=== PATIENT | female | born 1965 | race Caucasian/White ===

== ENCOUNTER 2018-03-23 20:16 | Emergency (ER) | payer OTHER ==
[~2018-03-23] VITALS: Ht 160 cm; Wt 117.5 kg
--- OUTSIDE RECORDS SUMMARY | 2018-03-23 20:19 | XMS REPORT | Clinical Summary ---
Author Author Fofana [facility] Organization [employer] [facility] Address Unknown Phone Unavailable Care Team Providers Care Inhalation Therapy Aide Name Role Phone Karthikeyan Lentz MD PCP Allergies No Known Allergies Current Medications Prescription Sig. Disp. Refills Start End Date Status Date aspirin (ECOTRIN) 81 MG Take 81 mg by mouth Active enteric coated tablet daily. clopidogrel (PLAVIX) 75 Take 75 mg by mouth Active mg tablet daily. metoprolol tartrate Take 25 mg by mouth Active (LOPRESSOR) 25 mg tablet daily. clonAZEPAM (KlonoPIN) 0.5 Take 0.5 mg by mouth Active MG tablet daily. busPIRone (BUSPAR) 5 MG Take 5 mg by mouth 2 Active tablet (two) times a day. lisinopril Take 2.5 mg by mouth Active (PRINIVIL,ZESTRIL) 2.5 mg daily. tablet levothyroxine (SYNTHROID, Take 50 mcg by mouth Active LEVOXYL) 50 mcg tablet every morning. traZODone (DESYREL) 50 MG Take 50 mg by mouth Active tablet nightly. sertraline (ZOLOFT) 50 MG Take 50 mg by mouth 2 Active tablet (two) times a day. zolpidem (AMBIEN) 10 mg Take 10 mg by mouth Active tablet nightly as needed for sleep. acetaminophen-codeine Take 1 tablet by mouth 2 01/11/20 Active (TYLENOL WITH CODEINE #4) (two) times a day. 18 300-60 mg per tablet famotidine (PEPCID) 40 MG Take 40 mg by mouth 12/23/19 Active tablet nightly as needed. 18 gabapentin (NEURONTIN) Take 100 mg by mouth 11/28/19 Active 100 mg capsule every evening. 18 pantoprazole (PROTONIX) Take 40 mg by mouth 12/23/19 Active 40 MG EC tablet daily. 18 pravastatin (PRAVACHOL) Take 40 mg by mouth 12/23/19 Active 40 MG tablet daily. 18 tiZANidine (ZANAFLEX) 4 Take 4 mg by mouth every 11/28/19 Active MG tablet 8 (eight) hours as 18 needed. traMADol (ULTRAM) 50 mg Take 50 mg by mouth every 12/23/19 Active tablet 8 (eight) hours as 18 needed. HYDROcodone-acetaminophen Take 1 tablet by mouth 08/15/20 Discontin (NORCO) 10-325 mg per every 6 (six) hours as 17 ued tablet needed for moderate pain. atorvastatin (LIPITOR) 80 Take 80 mg by mouth 08/12/20 Discontin MG tablet daily. 17 ued levothyroxine (SYNTHROID, Take 50 mcg by mouth 04/12/20 Discontin LEVOXYL) 50 mcg tablet every morning. 17 ued esomeprazole (NexIUM) 40 Take 40 mg by mouth daily 01/24/20 Discontin MG capsule before breakfast. 18 ued DULoxetine (CYMBALTA) 30 Take 30 mg by mouth 11/25/19 Discontin MG capsule daily. 18 ued zolpidem (AMBIEN) 10 mg Take 10 mg by mouth 08/15/20 Discontin tablet nightly as needed for 17 ued sleep. traMADol (ULTRAM) 50 mg Take 50 mg by mouth every 08/16/20 Discontin tablet 6 (six) hours as needed 17 ued for moderate pain. cyclobenzaprine Take 10 mg by mouth every 08/16/20 Discontin (FLEXERIL) 10 mg tablet 8 (eight) hours as needed 17 ued for muscle spasms. pravastatin (PRAVACHOL) Take 40 mg by mouth 09/20/20 Discontin 40 MG tablet nightly. 17 ued atorvastatin (LIPITOR) 80 Take 1 tablet (80 mg 30 tablet 0 08/15/20 09/20/20 Discontin MG tablet total) by mouth daily for 17 17 ued 30 days. HYDROcodone-acetaminophen Take 1 tablet by mouth 30 tablet 0 08/15/20 09/18/20 Discontin (NORCO) 10-325 mg per every 6 (six) hours as 17 17 ued tablet needed for moderate pain for up to 30 days. Max Daily Amount: 4 tablets zolpidem (AMBIEN) 10 mg Take 1 tablet (10 mg 30 tablet 0 08/15/20 Discontin tablet total) by mouth nightly 17 17 ued as needed for sleep for up to 30 days. nicotine (NICODERM CQ) 14 Place 1 patch on the skin 30 patch 0 09/18/20 Discontin mg/24 hr daily for 30 days. 17 17 ued meclizine (ANTIVERT) 25 Chew 1.5 tablets (37.5 mg 90 tablet 0 09/18/20 Discontin mg chewable tablet total) 3 (three) times a 17 17 ued day as needed for dizziness for up to 30 days. meclizine (ANTIVERT) 25 Take 1 tablet (25 mg 120 tablet 0 08/15/20 09/20/20 Discontin mg tablet total) by mouth every 6 17 17 ued (six) hours for 30 days. meclizine (ANTIVERT) 25 Chew 1.5 tablets (37.5 mg 90 tablet 0 10/18/20 mg chewable tablet total) 3 (three) times a 17 17 day as needed for dizziness for up to 30 days. atorvastatin (LIPITOR) 80 Take 1 tablet (80 mg 30 tablet 0 09/18/20 10/18/20 MG tablet total) by mouth daily for 17 17 30 days. guaiFENesin (ROBITUSSIN) Take 10 mL (200 mg total) 355 mL 0 09/18/20 10/18/20 100 mg/5 mL syrup by mouth every 6 (six) 17 17 hours as needed for congestion for up to 30 days. HYDROcodone-acetaminophen Take 1 tablet by mouth 15 tablet 0 09/18/20 09/20/20 Discontin (NORCO) 10-325 mg per every 8 (eight) hours as 17 17 ued tablet needed for severe pain for up to 5 days. Max Daily Amount: 3 tablets nicotine (NICODERM CQ) 14 Place 1 patch on the skin 30 patch 0 10/18/20 mg/24 hr daily for 30 days. 17 17 methylPREDNISolone follow package directions 21 tablet 0 09/18/20 (MEDROL, CAROL,) 4 mg 17 17 tablet levoFLOXacin (LEVAQUIN) Take 1 tablet (750 mg 5 tablet 0 09/18/20 Discontin 750 MG tablet total) by mouth daily for 17 17 ued 5 days. traMADol (ULTRAM) 50 mg Take 2 tablets (100 mg 15 tablet 0 09/20/20 09/25/20 tablet total) by mouth 3 (three) 17 17 times a day as needed for severe pain for up to 5 days. temazepam (RESTORIL) 15 Take 15 mg by mouth 01/11/20 01/26/20 Discontin mg capsule nightly as needed. 18 18 ued traZODone (DESYREL) 100 01/06/20 01/24/20 Discontin MG tablet 18 18 ued ciprofloxacin (CIPRO) 500 Take 1 tablet (500 mg 3 tablet 0 01/27/20 01/26/20 Discontin MG tablet total) by mouth 2 (two) 18 18 ued times a day for 2 days. ciprofloxacin (CIPRO) 500 Take 1 tablet (500 mg 3 tablet 0 01/27/20 01/29/20 MG tablet total) by mouth 2 (two) 18 18 times a day for 2 days. 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 Encounters Date Type Specialty Care Team Description 01/24/2018 Procedure Pass General Internal Medicine 01/24/2018 Procedure Pass General Internal Medicine 01/23/2018 Emergency General Internal Medicine Wil Whaley, Hyperlipidemia, - DO unspecified 01/25/2018 Karthikeyan Lentz MD hyperlipidemia type (Primary Dx); Transient cerebral ischemia, unspecified type; Chest pain, unspecified type; Altered mental status, unspecified altered mental status type; S/P CABG x 2 11/28/2017 Patient Quality Mary Alston RN Outreach 11/24/2017 Emergency General Internal Medicine Nuno Alvarez MD Chest pain, rule out - Karthikeyan Lentz MD acute myocardial 11/28/2017 infarction (Primary Dx) 09/18/2017 Procedure Pass General Internal Medicine 09/15/2017 [facility] General Internal Medicine Pedro Pablo Irizarry Go, Chest pain, unspecified - Encounter MD type (Primary Dx); 09/20/2017 Diana Pinzon Shortness of breath; Zelda Kan MD Intractable back pain 08/15/2017 Procedure Pass General Internal Medicine 08/12/2017 Procedure Pass General Internal Medicine 08/11/2017 [facility] General Internal Medicine Jac Martines Syncope, unspecified - Encounter MD Dima syncope type (Primary Dx) 08/16/2017 Gay Villalobos MD Roberts, Matthew Thomas, DO 04/21/2017 Lab Lab Derick Durbin MD Anemia, unspecified type (Primary Dx) 04/12/2017 Emergency Emergency Medicine Wil Whaley, Chest pain, unspecified DO type (Primary Dx) 03/27/2017 Emergency Emergency Medicine Physician, Emergency, Rosalio Solis MD 03/27/2017 Orders Only Emergency Medicine Rosalio Jacobo MD after 03/22/2017 Immunizations Name Dates Previously Given Next Due FLUCELVAX QUAD PF (0.5mL 09/16/2017 syringe) Family History Medical History Relation Name Comments Aneurysm Father Aneurysm Mother Circulation Problems with Mother Legs Heart disease Mother Relation Name Status Comments Father Mother Social History Tobacco Use Types Packs/Day Years Used Date Current Every Day Smoker 0.5 Smokeless Tobacco: Never Used Tobacco Cessation: Counseling Given: Yes Alcohol Use Drinks/Week oz/Week Comments No Sex Assigned at Date Recorded Not on file Last Filed Vital Signs Vital Sign Reading Time Taken Blood Pressure 115/69 01/25/2018 3:26 PM [employer] Pulse 100 01/25/2018 3:26 PM [employer] Temperature 36.3 C (97.4 F) 01/25/2018 3:26 PM [employer] Respiratory Rate 17 01/25/2018 3:26 PM [employer] Oxygen Saturation 97% 01/25/2018 3:26 PM [employer] Inhaled Oxygen - - Concentration Weight 115 kg (254 lb) 01/24/2018 9:01 AM [employer] Height 162.6 cm (5' 4") 01/23/2018 5:25 PM [employer] Body Mass Index 43.6 01/24/2018 9:01 AM [employer] Plan of Treatment Health Maintenance Due Date Last Done Comments PAP SMEAR 1985 COLONOSCOPY 2014 MAMMOGRAM 2014 SHINGRIX VACCINE (#1) 2014 INFLUENZA VACCINE 06/21/2018 09/16/2017 Procedures Procedure Name Priority Date/Time Associated Diagnosis Comments ECHOCARDIOGRAM 2D Routine 01/24/2018 Results for this COMPLETE W MMODE SPECTRAL 2:34 PM [employer] procedure are in the COLOR DOPPLER (17378) results section. CV STRESS TEST NUCLEAR Routine 11/27/2017 Results for this CARDIO 5:48 PM [employer] procedure are in the results section. ECHOCARDIOGRAM 2D Routine 11/26/2017 Results for this COMPLETE W MMODE SPECTRAL 12:31 PM [employer] procedure are in the COLOR DOPPLER (72226) results section. ECHOCARDIOGRAM 2D Routine 08/12/2017 Results for this COMPLETE W MMODE SPECTRAL 11:44 AM CDT procedure are in the COLOR DOPPLER (94568) results section. after 03/22/2017 Results * POC glucose (01/25/2018 3:55 PM) Only the most recent of 20 results within the time period is included. Component Value Ref Range POC glucose 103 (H) 65 - 100 mg/dL Comment: Meter ID: [id number] Genomics Scientist: Bernie Williamson Specimen Performing Laboratory [facility] [address] [place] [address] * Estimated GFR (01/25/2018 4:16 AM) Only the most recent of 18 results within the time period is included. Component Value Ref Range GFR Non Af Amer 65 mL/min/1.73 m2 GFR Af Amer 79 mL/min/1.73 m2 Comment: Chronic kidney disease: <60 mL/min/1.73m2 Kidney failure: <15 mL/min/1.73m2 The estimated GFR is calculated from the IDMS-traceable Modification of Diet in Renal Disease Equation. The accuracy of the calculation is poor when the creatinine is normal. Calculated values >90 mL/min/1.73m2 are not reported. This equation has not been validated in children (<18 years), women, the elderly (>70 years), or ethnic groups other than Caucasians and Americans. Specimen Performing Laboratory Plasma specimen [facility] [address] [place] [address] * CBC with platelet and differential (01/25/2018 4:16 AM) Only the most recent of 21 results within the time period is included. Component Value Ref Range WBC 13.4 (H) 4.2 - 11.0 k/uL RBC 5.06 4.04 - 5.86 m/uL HGB 14.1 11.5 - 15.3 g/dL HCT 45.1 (H) 34.0 - 45.0 % MCV 89.1 80.0 - 98.0 fL MCH 27.9 27.0 - 34.0 pg MCHC 31.3 (L) 31.5 - 36.5 g/dL RDW - SD 47.0 37.0 - 51.0 fL MPV 10.2 7.4 - 10.4 fL Platelet count 245 150 - 400 k/uL Nucleated RBC 0.00 /100 WBC Neutrophils 68.7 (H) 36.0 - 66.0 % Lymphocytes 22.7 (L) 24.0 - 44.0 % Monocytes 6.0 0.0 - 6.0 % Eosinophils 1.6 0.0 - 6.0 % Basophils 0.4 0.0 - 1.2 % Immature granulocytes 0.6 0.0 - 1.0 % Specimen Performing Laboratory Blood [facility] [address] [place] [address] * Basic metabolic panel (01/25/2018 4:16 AM) Only the most recent of 9 results within the time period is included. Component Value Ref Range Sodium 139 135 - 150 mEq/L Potassium 3.8 3.5 - 5.0 mEq/L Chloride 103 100 - 109 mEq/L CO2 28 24 - 32 mmol/L Anion gap 8 7 - 15 mEq/L Comment: Starting from February , anion gap calculation no longer incorporates potassium. Please note the change. BUN 17 7 - 18 mg/dL Creatinine 0.9 0.8 - 1.5 mg/dL Glucose 107 (H) 65 - 100 mg/dL Calcium 8.5 (L) 8.6 - 10.7 mg/dL Specimen Performing Laboratory Plasma specimen [facility] [address] [place] [address] * Echocardiogram complete w contrast and 3D if needed (01/24/2018 2:34 PM) Component Value Ref Range Velocity Ratio (V1/V2) 0.73 m/s IVS,d 0.78 0.6 - 1.2 cm EF 70.87 % LVPWD,d 0.79 cm AoV Mean PG 3.45 mmHg AV LVOT peak gradient 3.56 mmHg MV mean gradient 2.26 mmHg MV valve area p 1/2 4.12 cm2 method PV Pk Grad 3.44 mmHg E/A ratio 1.45 E wave decelartion time 184.07 msec LVOT Diam,S 1.90 cm LVOT area 2.83 cm2 LVOT Vmax 1.05 m/s LVOT VTI 0.19 m AoV Peak PG 8.35 mmHg MV Peak E Roger 1.12 m/s MV stenosis pressure 1/2 53.38 ms time MV Peak A Roger 0.77 m/s Ao Root Diameter 2.52 cm AoV Area, Vmax 1.85 cm2 AoV Area, VTI 2.03 cm2 AoV Vmax 1.44 m/s IVS/LVPW,2D 0.99 Left Atrium Dimension 3.81 cm Anterior LV,d 4.17 cm LV,s 2.51 cm PV VMAX 0.93 m/s TR Vpeak 2.76 mm/s MV E A ratio 1.45 mmHg TR pk grad 30.45 mmHg MR peak grad 5.07 mmHg Ao Root Diameter 2.52 cm LV SYS VOL 22.46 ml LV NIELSEN VOL 77.09 ml LV SV Teich 2D 54.62 ml LV Vol s Teich PSAX 22.46 ml LVOT CO 4.15 l/min LVOT HR for LVOT CO 72.99 bpm MV Vmax 1.13 m MV VTI Tips 0.27 m AoV Vmn 0.87 IVS s 2D 0.99 LV FS Cube 2D 39.84 LV FS Teich 2D 39.84 AoV VTI 0.25 m LV EF,2D 78.22 % MV AE ratio 0.69 LVOT Vmn 0.65 Aov area Vmn 1.98 cm2 LVOT mean grad 2.02 mmHg MAX Pred HR 166.92 85 of MPHR 141.88 Calc MPHR 166.92 bpm IVS pct thck PLAX 26.28 % LV SV Cube 2D 56.56 ml LV vol d cube 2D 72.31 ml LV vol s cube 2D 15.75 ml LVPW pct thck PLAX 56.98 % LVPW s PLAX 1.24 cm MV Decel slope 6.07 m/s2 Pred Exer Dur R1 8.66 Pred METS R1 7.80 Specimen Performing Laboratory [facility] [address] [place] [address] Narrative There is mild left ventricular concentric hypertrophy. Left Ventricular ejection fraction is 55 - 60%. Left atrium size is mildly dilated. No pericardial effusion The mitral valve appears thickened. Trace mitral valve regurgitation There is moderate sclerosis of the aortic valve leaflets. Spectral Doppler shows impaired relaxation pattern of left ventricular diastolic filling. * Arterial blood gas (01/24/2018 12:01 PM) Component Value Ref Rivet Tester CS Collection site RR pH, arterial 7.450 7.350 - 7.450 units pCO2, arterial 41.3 35.0 - 45.0 mmHg pO2, arterial 98.5 (H) 80.0 - 90.0 mmHg O2 saturation, arterial 98.1 95.0 - 100.0 % Base excess, arterial 4.7 mEq/L Bicarbonate 28.7 (H) 21.0 - 28.0 mEq/L O2 content 19.6 VOL% FiO2, inspired O2% 21.0 % Carboxyhemoglobin 1.6 (H) 0.0 - 1.4 % Comment: Reference Ranges: Carboxyhemoglobin Non smoker: 0.0 - 2.0% Smoker: 2.1 - 5.0% Heavy smoker: 5.1 - 9% Methemoglobin 0.1 0.0 - 1.0 % Hemoglobin, blood gas 14.4 12.0 - 16.0 g/dL pO2, A-a 5.4 mmHg Specimen Performing Laboratory Blood [facility] [address] [place] [address] * MRI Brain W Wo Contrast (01/24/2018 10:56 AM) Only the most recent of 2 results within the time period is included. Specimen Performing Laboratory [facility] [address] [place] [address] Narrative EXAMINATION: MRI BRAIN W WO CONTRAST COMPARISON: August 12, 2017 CLINICAL HISTORY AMS. TECHNIQUE: Multiplanar multisequence examination was performed with and without contrast FINDINGS: There is no definite diffusion restriction. The ventricles and subarachnoid spaces are mildly dilated. There is right minimal chronic microvascular gliosis in the centrum semiovale and petty. There is no acute hemorrhage or hemosiderin deposition. There are no significant interval changes IMPRESSION: Minimal chronic microvascular gliosis in the deep white matter. No acute ischemia or acute hemorrhage. No significant interval changes. [facility]-[id number] Procedure Note Interface, Radiology Results Incoming - 01/24/2018 11:03 AM [employer] EXAMINATION: MRI BRAIN W WO CONTRAST COMPARISON: August 12, 2017 CLINICAL HISTORY AMS. TECHNIQUE: Multiplanar multisequence examination was performed with and without contrast FINDINGS: There is no definite diffusion restriction. The ventricles and subarachnoid spaces are mildly dilated. There is right minimal chronic microvascular gliosis in the centrum semiovale and petty. There is no acute hemorrhage or hemosiderin deposition. There are no significant interval changes IMPRESSION: Minimal chronic microvascular gliosis in the deep white matter. No acute ischemia or acute hemorrhage. No significant interval changes. [facility]-[id number] * MRI Lumbar Spine Wo Contrast (01/24/2018 10:42 AM) Only the most recent of 2 results within the time period is included. Specimen Performing Laboratory [facility] [address] [place] [address] Narrative EXAM:MRI LUMBAR SPINE WO CONTRAST COMPARISON: September 18, 2017. CLINICAL HISTORY: left lumbar radiculopathy TECHNIQUE: Multiplanar multisequence examination was performedWithout contrast. FINDINGS: Sagittal images demonstrate moderate degenerative disc space narrowing at L2-3 with adjacent Modic type II fibrofatty reactive changes. There is very mild disc space narrowing at L5-S1. Axial images demonstrate following: L5-S1: There is a small dorsal left paramedian radial annular tear with minimal bulge. There is no significant mass effect on the left S1 nerve root. L4-5: There are minimal facet joint degenerative changes. L3-4: There are minimal facet joint degenerative changes. L2-3: There is annular bulging with a right foraminal disc protrusion impinging on the right L2 nerve root. This appears grossly stable. L1-2: No significant bulge or stenosis. IMPRESSION: Degenerative annular bulging at L2-3 with a superimposed right foraminal disc protrusion impinging on the right L2 nerve root. Small dorsal lithotomy degenerative annular tear at L5-S1 without significant protrusion or mass effect on the S1 nerve root. No significant central spinal canal stenosis. No gross interval changes. [facility]-[id number] Procedure Note Interface, Radiology Results Incoming - 01/24/2018 10:51 AM [employer] EXAM: MRI LUMBAR SPINE WO CONTRAST COMPARISON: September 18, 2017. CLINICAL HISTORY: left lumbar radiculopathy TECHNIQUE: Multiplanar multisequence examination was performed Without contrast. FINDINGS: Sagittal images demonstrate moderate degenerative disc space narrowing at L2-3 with adjacent Modic type II fibrofatty reactive changes. There is very mild disc space narrowing at L5-S1. Axial images demonstrate following: L5-S1: There is a small dorsal left paramedian radial annular tear with minimal bulge. There is no significant mass effect on the left S1 nerve root. L4-5: There are minimal facet joint degenerative changes. L3-4: There are minimal facet joint degenerative changes. L2-3: There is annular bulging with a right foraminal disc protrusion impinging on the right L2 nerve root. This appears grossly stable. L1-2: No significant bulge or stenosis. IMPRESSION: Degenerative annular bulging at L2-3 with a superimposed right foraminal disc protrusion impinging on the right L2 nerve root. Small dorsal lithotomy degenerative annular tear at L5-S1 without significant protrusion or mass effect on the S1 nerve root. No significant central spinal canal stenosis. No gross interval changes. [facility]-[id number] * Troponin (01/24/2018 9:52 AM) Only the most recent of 15 results within the time period is included. Component Value Ref Range Troponin <0.01 0.00 - 0.60 ng/mL Comment: 0.11 - 1.49 ng/ml May indicate increased risk of acute coronary syndrome. >=1.5 ng/ml Consistent with acute myocardial infarction. The diagnostic value of a single normal or non-diagnostic result is questionable. Serial samples at 2-6 hour intervals are required to rule out acute myocardial injury. Specimen Performing Laboratory Plasma specimen [facility] [address] [place] [address] [place] [address] * Thyroid stimulating hormone (01/24/2018 9:52 AM) Component Value Ref Range TSH 0.89 0.38 - 4.82 uIU/mL Specimen Performing Laboratory Plasma specimen [facility] [address] [place] [address] [place] [address] * Ammonia level (01/24/2018 9:52 AM) Component Value Ref Range Ammonia 11 3 - 37 umol/L Specimen Performing Laboratory Plasma specimen [facility] [address] [place] [address] [place] [address] * Urine drugs of abuse screen (01/24/2018 9:37 AM) Only the most recent of 2 results within the time period is included. Component Value Ref Range Amphetamine screen, urine NEG Barbiturate screen, urine NEG Benzodiazepine screen, POS urine Cocaine screen, urine NEG Methadone screen, urine NEG Opiates screen, urine POS Phencyclidine screen, NEG urine Cannabinoid screen, urine NEG Comment: Drug screen minimum concentration of detectability Amphetamines 1000 ng/mL Methamphetamines 1000 ng/mL Barbiturates 300 ng/mL Benzodiazepines 300 ng/mL Cocaine 300 ng/mL Methadone 3 00 ng/mL Opiates 300 ng/mL Phencyclidine 25 ng/mL Cannabinoids 50 ng/mL Tricyclics 1000 ng/mL Negative test results indicates presumptive evidence of lack of clinically significant drug concentration in this urine specimen. Positive test results are presumptive evidence of clinically significant drug concentration in this urine specimen. Testing performed for medical purposes only. Specimen Performing Laboratory Urine [facility] [address] [place] [address] * Urinalysis screen and microscopy, with reflex to culture (01/24/2018 3:13 AM) Only the most recent of 5 results within the time period is included. Component Value Ref Range Specimen site Clean catch Color, UA Yellow Appearance, UA Clear Specific gravity, UA 1.035 1.001 - 1.035 pH, UA 6.0 5.0 - 8.5 Protein, UA 1+ (A) Negative Glucose, UA Negative Negative Ketones, UA Negative Negative Bilirubin, UA Negative Negative Blood, UA Negative Negative Nitrite, UA Positive (A) Negative Urobilinogen, UA Negative <2.0 Leukocyte esterase, UA Negative Negative Epithelial cells, UA Moderate /HPF WBC, UA 8 (H) 0 - 5 /HPF RBC, UA 2 0 - 5 /HPF Bacteria, UA Moderate (A) None seen Yeast, UA None seen Yeast with pseudohyphae, None seen UA Calcium oxalate crystals, Few UA Specimen Performing Laboratory Urine [facility] [address] [place] [place] [address] * Gram stain (01/24/2018 3:13 AM) Only the most recent of 4 results within the time period is included. Component Value Ref Range Gram stain result No WBC's Rare Gram negative rods Comment: Specimen Information Specimen Source: Urine Specimen Site: Clean catch Specimen Performing Laboratory Urine [facility] DEPART[facility] OF PATHOLOGY AND GENOMIC MEDICINE [address] [place] [address] * Urine culture (01/24/2018 3:13 AM) Only the most recent of 4 results within the time period is included. Component Value Ref Range Urine culture isolate Escherichia coli >10-5 cfu/ml (A) Comment: Specimen Information Specimen Source: Urine Specimen Site: Clean catch Urine culture isolate Mixed Gram positive harmony 10-2 cfu/ml (A) Specimen Performing Laboratory Urine [facility] DE[facility] OF PATHOLOG[facility]OM[facility] MEDICINE [address] [place] [id number] Organism Antibiotic Method Susceptibility Escherichia coli Ampicillin ARNULFO <=2 mcg/mL: Susceptible Escherichia coli Amoxicillin/Clavulanate ARNULFO 4/2 mcg/mL: Susceptible Escherichia coli Amikacin ARNULFO <=4 mcg/mL: Susceptible Escherichia coli Aztreonam ARNULFO <=1 mcg/mL: Susceptible Escherichia coli Ceftazidime ARNULFO <=0.5 mcg/mL: Susceptible Escherichia coli Ciprofloxacin ARNULFO <=0.5 mcg/mL: Susceptible Escherichia coli Ceftriaxone ARNULFO <=0.5 mcg/mL: Susceptible Escherichia coli Cefuroxime Sodium ARNULFO <=4 mcg/mL: Susceptible Escherichia coli Cefazolin ARNULFO <=1 mcg/mL: Susceptible Escherichia coli Cefipime ARNULFO <=0.5 mcg/mL: Susceptible Escherichia coli Nitrofurantoin ARNULFO <=16 mcg/mL: Susceptible Escherichia coli Cefoxitin ARNULFO <=4 mcg/mL: Susceptible Escherichia coli Gentamicin ARNULFO <=1 mcg/mL: Susceptible Escherichia coli Imipenem ARNULFO <=0.25 mcg/mL: Susceptible Escherichia coli Levofloxacin ARNULFO <=1 mcg/mL: Susceptible Escherichia coli Tobramycin ARNULFO 1 mcg/mL: Susceptible Escherichia coli Ampicillin/Sulbactam ARNULFO 4/2 mcg/mL: Susceptible Escherichia coli Trimethoprim/Sulfamethoxa ARNULFO <=0.5/9.5 mcg/mL: zole Susceptible Escherichia coli Tetracycline ARNULFO <=1 mcg/mL: Susceptible Escherichia coli Piperacillin/Tazobactam ARNULFO <=2/4 mcg/mL: Susceptible Escherichia coli Ertapenem ARNULFO <=0.125 mcg/mL: Susceptible Escherichia coli Tigecycline ARNULFO <=0.5 mcg/mL: Susceptible * CTA Head W Wo Contrast (01/23/2018 5:40 PM) Specimen Performing Laboratory [address] [address] Narrative EXAMINATION:CT ANGIOGRAM HEAD W WO CONTRAST CLINICAL HISTORY:STROKE COMPARISON:None. FINDINGS: Axial images were obtained throughout the the brain after intravenous contrast infusion with MPR and 3-D MIP image reconstructions. CT scans are performed using radiation dose reduction techniques. Technical factors are evaluated and adjusted to ensure appropriate moderation of exposure. Automated dose management technology is applied to adjust radiation exposure while achieving a highly diagnostic quality image. The large intracranial arteries are patent. There are minimal atheromatous carotid siphon calcifications. There is no definite focal aneurysm. The dural venous sinuses are patent. IMPRESSION: Essentially unremarkable examination. No large vessel occlusion or aneurysm. [facility]-[id number] Procedure Note Hm Interface, Radiology Results Incoming - 01/23/2018 5:51 PM [employer] EXAMINATION: CT ANGIOGRAM HEAD W WO CONTRAST CLINICAL HISTORY: STROKE COMPARISON: None. FINDINGS: Axial images were obtained throughout the the brain after intravenous contrast infusion with MPR and 3-D MIP image reconstructions. CT scans are performed using radiation dose reduction techniques. Technical factors are evaluated and adjusted to ensure appropriate moderation of exposure. Automated dose management technology is applied to adjust radiation exposure while achieving a highly diagnostic quality image. The large intracranial arteries are patent. There are minimal atheromatous carotid siphon calcifications. There is no definite focal aneurysm. The dural venous sinuses are patent. IMPRESSION: Essentially unremarkable examination. No large vessel occlusion or aneurysm. [facility]-[id number] * CTA Neck W Wo Contrast (01/23/2018 5:36 PM) Only the most recent of 2 results within the time period is included. Specimen Performing Laboratory [facility] [address] [place] [address] Narrative EXAMINATION: CT ANGIOGRAM NECK W WO CONTRAST CLINICAL HISTORY: STROKE COMPARISON:Carotid ultrasound exam dated November 25, 2017 and CTA neck dated August 13, 2017 TECHNIQUE: Imaging of the cervical circulation was obtained from the upper thorax to the skull base during the arterial phase of enhancement. Postprocessing was performed with MIP multiplanar and 3D reconstructed images. CT imaging was performed with iterative reconstruction technique and/or automated exposure control to reduce radiation dose. FINDINGS: Visualized upper mediastinum shows no mass lesion. Lung apices are clear. There is some atherosclerotic disease involving the takeoff of the left subclavian artery with mild stenosis. There are dense calcifications in the partially visualized coronary vessels. Thyroid gland is intact. Soft tissues are within normal limits without mass, fluid collection or adenopathy. Visualized osseous structures shows no acute fracture or dislocation. There is calcified and noncalcified plaque in the right carotid bulb. This results in moderate, 40-50% stenosis of the vessel. This appears slightly progressed from prior exam. The common carotid artery is widely patent. The left common carotid artery is patent. There is noncalcified plaque in the carotid bulb with 30-40% stenosis of the internal carotid artery by NASCET criteria. This actually appears slightly improved from the prior July exam. This is secondary to less prominent soft plaque in the vessel compared to the prior exam. The vertebral arteries are well formed and roughly codominant. There is some plaque noted at the origins of the vessels with mild stenosis. Otherwise the vessels are widely patent. IMPRESSION: There is moderate stenosis of the carotid bulbs. This has slightly progressed on the right. It has slightly improved on the left compared to prior CTA dated August 13, 2017. [facility]-[id number] Procedure Note Hm Interface, Radiology Results Incoming - 01/23/2018 5:52 PM [employer] EXAMINATION: CT ANGIOGRAM NECK W WO CONTRAST CLINICAL HISTORY: STROKE COMPARISON: Carotid ultrasound exam dated November 25, 2017 and CTA neck dated August 13, 2017 TECHNIQUE: Imaging of the cervical circulation was obtained from the upper thorax to the skull base during the arterial phase of enhancement. Postprocessing was performed with MIP multiplanar and 3D reconstructed images. CT imaging was performed with iterative reconstruction technique and/or automated exposure control to reduce radiation dose. FINDINGS: Visualized upper mediastinum shows no mass lesion. Lung apices are clear. There is some atherosclerotic disease involving the takeoff of the left subclavian artery with mild stenosis. There are dense calcifications in the partially visualized coronary vessels. Thyroid gland is intact. Soft tissues are within normal limits without mass, fluid collection or adenopathy. Visualized osseous structures shows no acute fracture or dislocation. There is calcified and noncalcified plaque in the right carotid bulb. This results in moderate, 40-50% stenosis of the vessel. This appears slightly progressed from prior exam. The common carotid artery is widely patent. The left common carotid artery is patent. There is noncalcified plaque in the carotid bulb with 30-40% stenosis of the internal carotid artery by NASCET criteria. This actually appears slightly improved from the prior July exam. This is secondary to less prominent soft plaque in the vessel compared to the prior exam. The vertebral arteries are well formed and roughly codominant. There is some plaque noted at the origins of the vessels with mild stenosis. Otherwise the vessels are widely patent. IMPRESSION: There is moderate stenosis of the carotid bulbs. This has slightly progressed on the right. It has slightly improved on the left compared to prior CTA dated August 13, 2017. [id number] * ECG ED Preliminary Interpretation - NOT AN ORDER (01/23/2018 5:27 PM) Only the most recent of 6 results within the time period is included. Narrative Wil Whaley DO 01/26/20188:55 AM ECG ED Preliminary Interpretation - Not an Order Performed by: WIL WHALEY Authorized by: WIL WHALEY ECG reviewed by ED Physician in the absence of a vp digital marketing: yes Rate: ECG rate:104 ECG rate assessment: tachycardic Rhythm: Rhythm: sinus tachycardia Ectopy: Ectopy: none QRS: QRS axis:Normal Conduction: Conduction: normal ST segments: ST segments:Normal T waves: T waves: normal Other findings: Other findings: prolonged qTc interval Comments: Time 17:24. * ECG 12 lead (01/23/2018 5:24 PM) Only the most recent of 10 results within the time period is included. Component Value Ref Range Ventricular rate 104 Atrial rate 104 MN interval 152 QRSD interval 88 QT interval 382 QTC interval 502 P axis 1 65 QRS axis 1 34 T wave axis 60 EKG impression Sinus tachycardia-Nonspecific ST abnormality-Abnormal ECG-In automated comparison with ECG of 25-NOV-2017 01:12,-No significant change was found- Specimen Performing Laboratory [facility] [address] [place] [address] * CT Stroke Brain Wo Contrast (01/23/2018 5:15 PM) Specimen Performing Laboratory [facility] [address] [place] [address] Narrative Examination: CT STROKE BRAIN WO CONTRAST Clinical History: STROKE Comparison: NONE Technique: Multiple axial CT images of the brain are obtained without the use of intravenous contrast. CT scans are performed using radiation dose reduction techniques. Technical factors are evaluated and adjusted to ensure appropriate moderation of exposure. Automated dose management technology is applied to adjust radiation dose to minimize exposure, while achieving a diagnostic image. FINDINGS: The visualized paranasal sinuses are clear. The mastoid air cells are well aerated. The globes and optic nerves are unremarkable. The ventricles are symmetrical. There is no mass effect or any midline shift. There is no evidence of any extra-axial fluid collection. There is no parenchymal hemorrhage or mass lesion. There is maintenance of the colvin-white junction.There is a chronic lacunar infarct seen within the left basal ganglia. This is unchanged from prior study. The posterior fossa does not demonstrate any masses. IMPRESSION: 1. There Is no acute intracranial abnormality. 2. A chronic lacunar infarct seen within the left basal ganglia. 3. There is no significant interval change from prior study. 4. Findings were discussed with Dr. WIL WHALEY at 01/23/2018 5:20 PM who verbalized understanding. [facility]-[id number] Procedure Note [facility], Radiology Results Incoming - 01/23/2018 5:23 PM [employer] Examination: CT STROKE BRAIN WO CONTRAST Clinical History: STROKE Comparison: NONE Technique: Multiple axial CT images of the brain are obtained without the use of intravenous contrast. CT scans are performed using radiation dose reduction techniques. Technical factors are evaluated and adjusted to ensure appropriate moderation of exposure. Automated dose management technology is applied to adjust radiation dose to minimize exposure, while achieving a diagnostic image. FINDINGS: The visualized paranasal sinuses are clear. The mastoid air cells are well aerated. The globes and optic nerves are unremarkable. The ventricles are symmetrical. There is no mass effect or any midline shift. There is no evidence of any extra-axial fluid collection. There is no parenchymal hemorrhage or mass lesion. There is maintenance of the colvin-white junction. There is a chronic lacunar infarct seen within the left basal ganglia. This is unchanged from prior study. The posterior fossa does not demonstrate any masses. IMPRESSION: 1. There Is no acute intracranial abnormality. 2. A chronic lacunar infarct seen within the left basal ganglia. 3. There is no significant interval change from prior study. 4. Findings were discussed with Dr. WIL WHALEY at 01/23/2018 5:20 PM who verbalized understanding. [id number] * Partial thromboplastin time, activated (01/23/2018 5:10 PM) Only the most recent of 4 results within the time period is included. Component Value Ref Range PTT 24.6 23.0 - 36.0 sec Comment: PTT therapeutic range for unfractionated heparin is 61.0-112.0 seconds which corresponds to Anti-Xa 0.3-0.7 U/ml. Note: Change in Panic Value The PTT Panic Value is changing from 110 sec. to 100 sec. due to new instrumentation and reagents. Correlation studies have been performed to validate this result. Specimen Performing Laboratory Blood [facility] [address] [place] [address] * Prothrombin time with INR (01/23/2018 5:10 PM) Only the most recent of 9 results within the time period is included. Component Value Ref Range Prothrombin time 12.7 12.0 - 15.0 sec INR 0.94 0.92 - 1.12 Comment: For patients on anticoagulant therapy, reference ranges below: Indication: INR Value Treatment of Venous Thrombosis, 2.0-3.0 pulmonary emboli, or prophylaxis of a venous thrombosis, or systemic emboli. High dose, high risk patients 3.0-4.5 with mechanical valves. NOTE: INR values over 3.0 are sometimes associated with gastrointestinal hemorrhage, especially values over 4.0. Specimen Performing Laboratory Blood [facility] [address] [place] [address] * Comprehensive metabolic panel (01/23/2018 5:10 PM) Only the most recent of 9 results within the time period is included. Component Value Ref Range Sodium 139 135 - 150 mEq/L Potassium 3.7 3.5 - 5.0 mEq/L Chloride 105 100 - 109 mEq/L CO2 25 24 - 32 mmol/L Anion gap 9 7 - 15 mEq/L Comment: Starting from February , anion gap calculation no longer incorporates potassium. Please note the change. BUN 15 7 - 18 mg/dL Creatinine 0.8 0.8 - 1.5 mg/dL Glucose 102 (H) 65 - 100 mg/dL Calcium 9.1 8.6 - 10.7 mg/dL Protein 7.9 6.3 - 8.2 g/dL Albumin 3.5 3.2 - 5.0 g/dL A/G ratio 0.8 0.7 - 3.8 Alkaline phosphatase 88 30 - 120 U/L AST 6 (L) 15 - 37 U/L ALT 15 (L) 30 - 65 U/L Total bilirubin 0.3 0.2 - 1.2 mg/dL Specimen Performing Laboratory Plasma specimen [facility] [address] [place] [address] * CV stress test (11/27/2017 5:48 PM) Component Value Ref Range Resting HR 91 Resting BP 139 Peak MET Achieved 1.0 Protocol Name FARHAT Time in Exercise Phase 00:01:21 Max Systolic BP 146 Max Diastolic BP 77 Max Heart Rate 117 Max Predicted Heart Rate 168 Target HR Formula (220 - Age)*85% Test Indication Chest Discomfort Stress Test Impression - Target HR 142.80 bpm Specimen Performing Laboratory [facility] [address] [place] [address] * CV myocardial perfusion (11/27/2017 5:48 PM) Component Value Ref Range Target HR 142.80 bpm Resting HR 91 BPM Resting BP 139/82 mmHg Post peak HR 117 bpm Percent HR 81.93 % Post peak BP 146/77 mmHg Exercise duration (min) 2 min Estimated workload 1.0 METS Specimen Performing Laboratory [facility] [address] [place] [address] Narrative No chest pain No exercise induced ST-T changes. No arrhythmias with exercise. Normal heart rate and BP response. Myoview report Breastattenuation artifact No conclusive significant large reversible Ischemia Normal wall motion EF 65 % * Echocardiogram complete w contrast and 3D if needed (11/26/2017 12:31 PM) Component Value Ref Range Velocity Ratio (V1/V2) 0.69 m/s IVS,d 1.11 0.6 - 1.2 cm EF 66.62 % LVPWD,d 0.99 cm AoV Mean PG 3.16 mmHg AV LVOT peak gradient 2.89 mmHg MV mean gradient 2.48 mmHg MV valve area p 1/2 3.96 cm2 method PV Pk Grad 2.48 mmHg E/A ratio 0.95 E wave decelartion time 191.37 msec LVOT Diam,S 1.84 cm LVOT area 2.66 cm2 LVOT Vmax 0.85 m/s LVOT VTI 0.17 m AoV Peak PG 6.14 mmHg MV Peak E Roger 0.70 m/s MV stenosis pressure 1/2 55.50 ms time MV Peak A Roger 0.74 m/s Ao Root Diameter 2.76 cm AoV Area, Vmax 1.81 cm2 AoV Area, VTI 2.05 cm2 AoV Vmax 1.24 m/s IVS/LVPW,2D 1.12 Left Atrium Dimension 3.77 cm Anterior LV,d 4.43 cm LV,s 2.80 cm PV VMAX 0.79 m/s TR Vpeak 2.42 mm/s MV E A ratio 0.94 mmHg TR pk grad 18.23 mmHg MR peak grad 7.04 mmHg Ao Root Diameter 2.76 cm LV SYS VOL 29.67 ml LV NIELSEN VOL 88.89 ml LV SV Teich 2D 59.22 ml LV Vol s Teich PSAX 29.67 ml LVOT CO 3.55 l/min LVOT HR for LVOT CO 76.72 bpm MV Vmax 1.33 m MV VTI Tips 0.30 m AoV Vmn 0.82 IVS s 2D 1.26 LV FS Cube 2D 36.63 LV FS Teich 2D 36.63 AoV VTI 0.23 m LV EF,2D 74.55 % MV AE ratio 1.06 LVOT Vmn 0.51 Aov area Vmn 1.72 cm2 LVOT mean grad 1.26 mmHg MAX Pred HR 167.08 85 of MPHR 142.02 Calc MPHR 167.08 bpm IVS pct thck PLAX 12.91 % LV SV Cube 2D 64.61 ml LV vol d cube 2D 86.67 ml LV vol s cube 2D 22.06 ml LVPW pct thck PLAX 33.53 % LVPW s PLAX 1.32 cm MV Decel slope 3.66 m/s2 Pred Exer Dur R1 8.67 Pred METS R1 7.82 Specimen Performing Laboratory [facility] [address] [place] [address] Narrative The left ventricle chamber size is normal. Left Ventricular ejection fraction is 60 - 65%. Spectral Doppler shows impaired relaxation pattern of left ventricular diastolic filling. Right ventricular size is normal. The anterior leaflet is mild thickened and/or calcified. There is a mild prolapse of the mitral valve. * PV carotid duplex (11/25/2017 9:32 PM) Only the most recent of 2 results within the time period is included. [facility] [address] [place] [address] Narrative Examination: US CAROTID DUPLEX BILATERAL CLINICAL HISTORY: Syncope of uncertain cause after initial cardiovascular eval TECHNIQUE: Examination includes full duplex Doppler scan (real-time B mode grayscale, Doppler spectral analysis, Doppler color flow imaging) of the common carotid, internal carotid, external carotid, and vertebral arteries. Velocity parameters are based upon studies using distal internal carotid artery diameter as a denominator for stenosis calculation. COMPARISON:None. FINDINGS: Right side: Visually, there is a partially calcific plaque at the carotid bulb and proximal ICA which appears to result in some degree of narrowing. The peak systolic velocities in the right internal carotid artery are 94, 112, and 104 cm /s. ICA/CCA ratio 1.5. There is antegrade flow in the right vertebral artery. Left side: Visually, there appears to be predominantly noncalcified plaque at the carotid bulb and proximal cervical ICA resulting in some degree of narrowing The peak systolic velocities in the left internal carotid artery are 137, 108, and 62 cm/s. ICA/CCA ratio 1.7. Morphologically, there appears to be prolongation of the acceleration time. There is antegrade flow in the left vertebral artery. IMPRESSION: Atherosclerosis as described above. Most likely this results in mild stenosis on the right. On the left, peak systolic velocities as well as the prolonged acceleration time could indicates more significant stenosis, most likely moderate (50-69%). Consider correlation with dedicated neck CTA. [facility]-[id number] Procedure Note [facility], Radiology Results Incoming - 11/25/2017 9:44 PM [employer] Examination: US CAROTID DUPLEX BILATERAL CLINICAL HISTORY: Syncope of uncertain cause after initial cardiovascular eval TECHNIQUE: Examination includes full duplex Doppler scan (real-time B mode grayscale, Doppler spectral analysis, Doppler color flow imaging) of the common carotid, internal carotid, external carotid, and vertebral arteries. Velocity parameters are based upon studies using distal internal carotid artery diameter as a denominator for stenosis calculation. COMPARISON:None. FINDINGS: Right side: Visually, there is a partially calcific plaque at the carotid bulb and proximal ICA which appears to result in some degree of narrowing. The peak systolic velocities in the right internal carotid artery are 94, 112, and 104 cm /s. ICA/CCA ratio 1.5. There is antegrade flow in the right vertebral artery. Left side: Visually, there appears to be predominantly noncalcified plaque at the carotid bulb and proximal cervical ICA resulting in some degree of narrowing The peak systolic velocities in the left internal carotid artery are 137, 108, and 62 cm/s. ICA/CCA ratio 1.7. Morphologically, there appears to be prolongation of the acceleration time. There is antegrade flow in the left vertebral artery. IMPRESSION: Atherosclerosis as described above. Most likely this results in mild stenosis on the right. On the left, peak systolic velocities as well as the prolonged acceleration time could indicates more significant stenosis, most likely moderate (50-69%). Consider correlation with dedicated neck CTA. [facility]-[id number] * HOLLIS 2 mutation detection by PCR (11/25/2017 6:34 PM) Component Value Ref Range HOLLIS-2 mutation ID Not-Detected Not-Detected HOLLIS-2 amplification Not-Detected Not-Detected HOLLIS 2 mutation detection, See link below for PDF Lab ReportComment: Case PCR Number: [id number] Specimen Performing Laboratory Blood [facility] DEPARTMENT OF PATHOLOGY AND GENOMIC MEDICINE [address] [place] [id number] * Erythropoietin (11/25/2017 6:34 PM) Component Value Ref Range Erythropoietin 13.4 2.6 - 18.5 mIU/mL Specimen Performing Laboratory Serum [facility] OF PATHOLOGY AND GENOMIC MEDICINE [address] [place] [id number] * XR Chest 2 Vw (11/24/2017 8:19 PM) Specimen Performing Laboratory [facility] [address] [place] [id number] Narrative EXAMINATION: XR CHEST 2 VW CLINICAL HISTORY: Chest Pain COMPARISON:09/15/2017. IMPRESSION: The lungs are clear. No pleural effusion or pneumothorax. The cardiac silhouette is borderline enlarged. Diffuse osteopenia. Status post median sternotomy. No acute osseous abnormalities. [facility]-[id number] Procedure Note Interface, Radiology Results Incoming - 11/24/2017 8:42 PM [employer] EXAMINATION: XR CHEST 2 VW CLINICAL HISTORY: Chest Pain COMPARISON: 09/15/2017. IMPRESSION: The lungs are clear. No pleural effusion or pneumothorax. The cardiac silhouette is borderline enlarged. Diffuse osteopenia. Status post median sternotomy. No acute osseous abnormalities. [facility]-[id number] * B natriuretic peptide (11/24/2017 4:10 PM) Only the most recent of 6 results within the time period is included. Component Value Ref Range BNP 37 0 - 100 pg/mL Specimen Performing Laboratory Blood [facility] [address] [address] * Creatine kinase, total (CPK) (11/24/2017 4:10 PM) Only the most recent of 5 results within the time period is included. Component Value Ref Range Creatine kinase 34 (L) 61 - 224 U/L Specimen Performing Laboratory Plasma specimen [facility] [address] [place] [address] * Smear review (09/19/2017 12:00 PM) Only the most recent of 3 results within the time period is included. Component Value Ref Range Platelet slide review Desiree adequate Specimen Performing Laboratory [facility] [address] [place] [address] * CT Lumbar Spine Wo Contrast (09/18/2017 3:18 PM) Specimen Performing Laboratory [facility] [address] [place] [address] Narrative EXAMINATION:CT LUMBAR SPINE WO CONTRAST CLINICAL HISTORY:back pain COMPARISON:None. Technique: Axial scans obtained through the lumbar spine. Sagittal and coronal reconstructions performed. 863 total images utilized. FINDINGS: The patient is mildly osteoporotic. The lumbar lordosis is well maintained. There are 5 lumbar-type vertebrae. No compressive abnormality. Mild disc space narrowing L5-S1 with vacuum disc changes. Mild anterolateral osteophytic changes at L2-3. No spondylolysis or spondylolisthesis. Transverse processes well-maintained throughout. Moderate degenerative facet hypertrophy L4-5 and L5-S1 bilaterally. Mild degenerative SI joint changes bilaterally. No paravertebral hematoma. Moderate atherosclerosis normal caliber abdominal aorta. Diffuse atherosclerosis extending into the iliac arteries bilaterally. No evidence of hydronephrosis on either side. Adrenal glands normal size. Uterus grossly unremarkable on partial visualization IMPRESSION: Mild degenerative facet hypertrophy L4-5 and L5-S1 Mild underlying osteoporosis. No compressive abnormality. No bony canal stenosis. Extensive atherosclerosis No metastatic-appearing bony lesions in the lumbar spine [id number] Procedure Note Interface, Radiology Results Incoming - 09/18/2017 3:36 PM CDT EXAMINATION: CT LUMBAR SPINE WO CONTRAST CLINICAL HISTORY: back pain COMPARISON: None. Technique: Axial scans obtained through the lumbar spine. Sagittal and coronal reconstructions performed. 863 total images utilized. FINDINGS: The patient is mildly osteoporotic. The lumbar lordosis is well maintained. There are 5 lumbar-type vertebrae. No compressive abnormality. Mild disc space narrowing L5-S1 with vacuum disc changes. Mild anterolateral osteophytic changes at L2-3. No spondylolysis or spondylolisthesis. Transverse processes well-maintained throughout. Moderate degenerative facet hypertrophy L4-5 and L5-S1 bilaterally. Mild degenerative SI joint changes bilaterally. No paravertebral hematoma. Moderate atherosclerosis normal caliber abdominal aorta. Diffuse atherosclerosis extending into the iliac arteries bilaterally. No evidence of hydronephrosis on either side. Adrenal glands normal size. Uterus grossly unremarkable on partial visualization IMPRESSION: Mild degenerative facet hypertrophy L4-5 and L5-S1 Mild underlying osteoporosis. No compressive abnormality. No bony canal stenosis. Extensive atherosclerosis No metastatic-appearing bony lesions in the lumbar spine [id number] * CT Pelvis Wo Contrast (09/17/2017 11:19 PM) Specimen Performing Laboratory [facility] [address] [place] [address] Narrative Examination:CT PELVIS WO CONTRAST Clinical History: S P FAll Comparison: None. Findings: CT scans are performed using radiation dose reduction techniques.Technical factors are evaluated and adjusted to ensure appropriate moderation of exposure. Automated dose management technology is applied to adjust radiation exposure while achieving a diagnostic quality image. CT scan of the pelvis was performed without intravenous contrast. No acute fracture or dislocation is seen. The joint spaces are within normal limits. No fluid collection or hematoma is seen. The appendix is visualized and unremarkable. No bowel thickening or fat stranding is seen. No bowel dilatation is seen. IMPRESSION: 1. No acute abnormality identified in the pelvis. [facility]-[id number] Procedure Note Interface, Radiology Results Incoming - 09/17/2017 11:35 PM CDT Examination: CT PELVIS WO CONTRAST Clinical History: S P FAll Comparison: None. Findings: CT scans are performed using radiation dose reduction techniques. Technical factors are evaluated and adjusted to ensure appropriate moderation of exposure. Automated dose management technology is applied to adjust radiation exposure while achieving a diagnostic quality image. CT scan of the pelvis was performed without intravenous contrast. No acute fracture or dislocation is seen. The joint spaces are within normal limits. No fluid collection or hematoma is seen. The appendix is visualized and unremarkable. No bowel thickening or fat stranding is seen. No bowel dilatation is seen. IMPRESSION: 1. No acute abnormality identified in the pelvis. [facility]-[id number] * CT Head Wo Contrast (09/17/2017 11:18 PM) Only the most recent of 3 results within the time period is included. Specimen Performing Laboratory [facility] [address] [place] [address] Narrative Examination:CT HEAD WO CONTRAST Clinical History: s p Fall Comparison: 09/15/2017 CT scan of the brain was performed without intravenous contrast. CT scans are performed using radiation dose reduction techniques.Technical factors are evaluated and adjusted to ensure appropriate moderation of exposure. Automated dose management technology is applied to adjust radiation exposure while achieving a diagnostic quality image. No mass effect or midline shift is seen. The ventricles are normal in size. No intracranial hemorrhage is seen. The visualized bony structures shows no acute abnormality. Colvin-white junctions are preserved. Old lacunar infarct of left basal ganglia is noted. IMPRESSION: 1. No acute intracranial abnormality identified and no change from the prior study. [facility]-[id number] Procedure Note [facility], Radiology Results Incoming - 09/17/2017 11:28 PM CDT Examination: CT HEAD WO CONTRAST Clinical History: s p Fall Comparison: 09/15/2017 CT scan of the brain was performed without intravenous contrast. CT scans are performed using radiation dose reduction techniques. Technical factors are evaluated and adjusted to ensure appropriate moderation of exposure. Automated dose management technology is applied to adjust radiation exposure while achieving a diagnostic quality image. No mass effect or midline shift is seen. The ventricles are normal in size. No intracranial hemorrhage is seen. The visualized bony structures shows no acute abnormality. Colvin-white junctions are preserved. Old lacunar infarct of left basal ganglia is noted. IMPRESSION: 1. No acute intracranial abnormality identified and no change from the prior study. [facility]-[id number] * Blood culture, aerobic & anaerobic (09/17/2017 12:29 PM) Only the most recent of 4 results within the time period is included. Component Value Ref Range Blood culture isolate No growth after 5 days of incubation. Comment: Specimen Information Specimen Source: Blood Specimen Site: Peripheral Hand Right Specimen Performing Laboratory Blood [facility] DEPARTMENT OF PATHOLOGY AND GENOMIC MEDICINE [address] [place] [id number] * Hemoglobin A1c (09/16/2017 4:44 AM) Only the most recent of 2 results within the time period is included. Component Value Ref Range Hemoglobin A1C 6.2 (H) 4.0 - 6.0 % Comment: Less than 6% - Goal of therapy for Type II Diabetes Less than 7%- Goal of therapy for Type I Diabetes Less than 8%- Acceptable control for Type I or Type II Diabetes Greater than 8%- Unacceptable control; action indicated. (A [id number]) Specimen Performing Laboratory Blood [facility]OMIC [facility]ICINE [address] [place] [address] * Lipid panel (09/16/2017 4:44 AM) Only the most recent of 2 results within the time period is included. Component Value Ref Range Cholesterol 250 (H) 120 - 200 mg/dL Triglycerides 290 (H) 50 - 150 mg/dL HDL cholesterol 56 40 - 60 mg/dL LDL cholesterol 165Comment: Result obtained by direct LDL mg/dL measurement Lipid panel See below interpretation Comment: Total Cholesterol (mg/dL) LDL Cholesterol (mg/dL) <200 Desirable <100 Optimal 200-239 Borderline-high 100-129 Near or above optimal >=240 High 130-159 Borderline-high 160-189 High >=190 Very high HDL Cholesterol (mg/dL) Triglycerides (mg/dL) <40 Low <150 Normal >=60 High 150-199 Borderline-high 200-499 High >=500 Very high Risk Catergories that modify LDL goals. Risk Catergories LDL goal (mg/dL) CHD and CHD risk equivalent <100 (10-year risk >20%) Multiple (2+) risk factors <130 (10-year risk=<20%) 0-1 risk factors <160 (<10-year risk) Defining levels of lipids in metabolic syndrome Triglycerides >=150 mg/dL HDL Cholesterol Men <40 mg/dL Women <50 mg/dL Non-HDL cholesterol is a second target for therapy in persons with high triglycerides (>=200 mg/dL) Specimen Performing Laboratory Plasma specimen [facility]OMIC [facility]IC[facility] [address] [place] [address] * XR Chest 1 Vw Portable (09/15/2017 8:29 PM) Only the most recent of 4 results within the time period is included. Specimen Performing Laboratory [facility] [address] [place] [address] Narrative EXAMINATION:XR CHEST 1 VW PORTABLE CLINICAL HISTORY:SHORTNESS OF BREATH COMPARISON:08/12/2017 chest IMPRESSION: Unremarkable portable view chest The lungs are clear. The heart is not enlarged. Sternotomy wires and surgical clips as before The bony structures are within normal limits. [facility]-[id number] Procedure Note Hm Interface, Radiology Results Incoming - 09/15/2017 9:03 PM CDT EXAMINATION: XR CHEST 1 VW PORTABLE CLINICAL HISTORY: SHORTNESS OF BREATH COMPARISON: 08/12/2017 chest IMPRESSION: Unremarkable portable view chest The lungs are clear. The heart is not enlarged. Sternotomy wires and surgical clips as before The bony structures are within normal limits. [facility]-[id number] * CT Angiogram Pe Chest (09/15/2017 4:38 PM) Only the most recent of 3 results within the time period is included. Specimen Performing Laboratory [facility] [address] [place] [address] Narrative EXAMINATION: CT ANGIOGRAM PE CHEST CLINICAL HISTORY: SHORTNESS OF BREATH TECHNIQUE: CT angiographic images of the chest were obtained during intravenous administration of iodinated contrast. Computerized reformatted images and 3-D MIP images were also obtained and archived (CT pulmonary embolus protocol). Approximately 100 cc of Visipaque [address] scan performed using radiation dose reduction techniques. Technical factors are evaluated and adjusted to ensure appropriate moderation of exposure. Automated dose management technology is applied to adjust the radiation dose to minimize expose whileachieving a diagnostic quality image. COMPARISON: None. FINDINGS: The main pulmonary artery, right pulmonary artery and left pulmonary artery as well as their visualized segmental and subsegmental branches demonstrate no evidence of intraluminal thrombosis. The pulmonary arteries are normal in caliber. Scattered atherosclerotic constipation of the thoracic aorta is noted. There is no evidence of aortic aneurysm or dissection. No mediastinum, hilar or axillary pathologic adenopathy is seen. Postsurgical change of medium bony is seen. The heart is normal in caliber. No pericardial effusion is seen. Left upper lobe lingular platelike subsegmental atelectasis is seen. Both lungs are otherwise clear. No pleural effusion is identified. The image portion of the abdomen viscera is unremarkable. IMPRESSION: No CTA evidence of pulmonary embolism. No CTA evidence of aortic aneurysm or dissection. Left upper lobe lingular platelike subsegmental atelectasis. [id number] Procedure Note Interface, Radiology Results Incoming - 09/15/2017 4:46 PM CDT EXAMINATION: CT ANGIOGRAM PE CHEST CLINICAL HISTORY: SHORTNESS OF BREATH TECHNIQUE: CT angiographic images of the chest were obtained during intravenous administration of iodinated contrast. Computerized reformatted images and 3-D MIP images were also obtained and archived (CT pulmonary embolus protocol). Approximately 100 cc of Visipaque [address] scan performed using radiation dose reduction techniques. Technical factors are evaluated and adjusted to ensure appropriate moderation of exposure. Automated dose management technology is applied to adjust the radiation dose to minimize expose while achieving a diagnostic quality image. COMPARISON: None. FINDINGS: The main pulmonary artery, right pulmonary artery and left pulmonary artery as well as their visualized segmental and subsegmental branches demonstrate no evidence of intraluminal thrombosis. The pulmonary arteries are normal in caliber. Scattered atherosclerotic constipation of the thoracic aorta is noted. There is no evidence of aortic aneurysm or dissection. No mediastinum, hilar or axillary pathologic adenopathy is seen. Postsurgical change of medium bony is seen. The heart is normal in caliber. No pericardial effusion is seen. Left upper lobe lingular platelike subsegmental atelectasis is seen. Both lungs are otherwise clear. No pleural effusion is identified. The image portion of the abdomen viscera is unremarkable. IMPRESSION: No CTA evidence of pulmonary embolism. No CTA evidence of aortic aneurysm or dissection. Left upper lobe lingular platelike subsegmental atelectasis. [id number] * MRI Cervical Spine Wo Contrast (08/15/2017 6:53 PM) Specimen Performing Laboratory [address] [address] Narrative EXAMINATION:MRI CERVICAL SPINE WO CONTRAST CLINICAL HISTORY:headache COMPARISON:None. TECHNIQUE: Standard noncontrast cervical spine MRI. FINDINGS: There is straightening of normal cervical lordosis without malalignment. Vertebral body heights are preserved. Bone marrow signal is unremarkable with no evidence of acute fracture or suspicious marrow-replacing lesion. Intervertebral disc spaces are relatively preserved. The spinal cord and visualized posterior fossa are normal in signal. C2-3: There is no significant posterior disc pathology, spinal canal or neural foraminal stenosis. C3-4: There is mild disc bulge with no significant spinal canal or neural foraminal stenosis. C4-5: There is no significant posterior disc pathology, spinal canal or neural foraminal stenosis. C5-6: There is no significant posterior disc pathology, spinal canal or neural foraminal stenosis. C6-7: There is mild disc bulge with no significant spinal canal or neural foraminal stenosis. C7-T1: There is mild disc bulge with no significant spinal canal or neural foraminal stenosis. Visualized neck soft tissues are unremarkable. IMPRESSION: Minimal cervical spondylosis with no significant spinal canal or neural foraminal stenosis. [facility]-[id number] Procedure Note Hm Interface, Radiology Results Incoming - 08/15/2017 7:08 PM CDT EXAMINATION: MRI CERVICAL SPINE WO CONTRAST CLINICAL HISTORY: headache COMPARISON: None. TECHNIQUE: Standard noncontrast cervical spine MRI. FINDINGS: There is straightening of normal cervical lordosis without malalignment. Vertebral body heights are preserved. Bone marrow signal is unremarkable with no evidence of acute fracture or suspicious marrow-replacing lesion. Intervertebral disc spaces are relatively preserved. The spinal cord and visualized posterior fossa are normal in signal. C2-3: There is no significant posterior disc pathology, spinal canal or neural foraminal stenosis. C3-4: There is mild disc bulge with no significant spinal canal or neural foraminal stenosis. C4-5: There is no significant posterior disc pathology, spinal canal or neural foraminal stenosis. C5-6: There is no significant posterior disc pathology, spinal canal or neural foraminal stenosis. C6-7: There is mild disc bulge with no significant spinal canal or neural foraminal stenosis. C7-T1: There is mild disc bulge with no significant spinal canal or neural foraminal stenosis. Visualized neck soft tissues are unremarkable. IMPRESSION: Minimal cervical spondylosis with no significant spinal canal or neural foraminal stenosis. [facility]-[id number] * HSV 1/2 Antibody screen IgM, CSF (08/13/2017 6:10 PM) Component Value Ref Range HSV 1/2 antibody IgM, CSF 0.17 <=0.89 IV Comment: INTERPRETIVE INFORMATION: Herpes Simplex Virus Type 1 and/or 2 Antibodies, IgM by J LUIS, CSF 0.89 IV or Less .......... Negative: No significant level of detectable HSV IgM antibody. 0.90 - 1.09 IV ........... Equivocal: Questionable presence of IgM antibodies. Repeat testing in 10-14 days may be helpful. 1.10 IV or Greater ....... Positive: IgM antibody to HSV detected, which may indicate a current or recent infection. However, low levels of IgM antibodies may occasionally persist for more than 12 months post-infection. The detection of antibodies to herpes simplex virus in CSF may indicate central nervous system infection. However, consideration must be given to possible contamination by blood or transfer of serum antibodies across the blood-brain barrier. Fourfold or greater rise in CSF antibodies to herpes on specimens at least 4 weeks apart are found in 74-94 % of patients with herpes encephalitis. Specificity of the test based on a single CSF testing is not established. Presently PCR is the primary means of establishing a diagnosis of herpes encephalitis. Test developed and characteristics determined by [facility]. See Compliance Statement B: [facility] Performed by [facility], [address] [place] [id number] [email or web address], Erick Marquez MD - Lab. Director Specimen Performing Laboratory Serum [address] [address] * West Nile virus antibody IgM, CSF (08/13/2017 6:10 PM) Component Value Ref Range West Nile IgM, CSF 0.02 <=0.89 IV Comment: INTERPRETIVE INFORMATION: West Nile Virus Ab IgM by J LUIS, CSF 0.89 IV or less ...... Negative - No significant level of West Nile virus IgM antibody detected. 0.90-1.10 IV ......... Equivocal - Questionable presence of West Nile virus IgM antibody detected. Repeat testing in 10-14 days may be helpful. 1.11 IV or greater ... Positive - Presence of IgM antibody to West Nile virus detected, suggestive of current or recent infection. This test is intended to be used as a semi-quantitative means of detecting West Nile virus-specific IgM in CSF samples in which there is a clinical suspicion of West Nile virus infection. This test should not be used solely for quantitative purposes, nor should the results be used without correlation to clinical history or other data. Because other members of the Flaviviridae family, such as [place] encephalitis virus, show extensive cross-reactivity with West Nile virus, serologic testing specific for these species should be considered. The detection of antibodies to West Nile virus in cerebrospinal fluid may indicate central nervous system infection. However, consideration must be given to possible contamination by blood or transfer of serum antibodies across the blood-brain barrier. Test developed and characteristics determined by [facility]. See Compliance Statement B: [facility] Performed by [facility], [address] [place] [id number] [email or web address], Erick Marquez MD - Lab. Director Specimen Performing Laboratory Serum [address] [address] * LDH, CSF (08/13/2017 6:10 PM) Component Value Ref Range LDH, CSF 25 U/L Comment: Analysis performed on Yi 8000 analyzer. This is not an approved methodology for this specimen type; accuracy and clinical significance uncertain. Specimen Performing Laboratory Cerebrospinal fluid [facility] DEPARTMENT OF PATHOLOGY AND GENOMIC MEDICINE [address] [place] [phone] * CSF culture (08/13/2017 6:10 PM) Component Value Ref Range CSF culture isolate No growth after 3 days. Comment: Specimen Information Specimen Source: CSF (Spinal Fluid) Specimen Site: Cerebral Specimen Performing Laboratory Cerebrospinal fluid - [facility] DEPARTMENT OF PATHOLOGY AND GENOMIC MEDICINE Cerebral [address] [place] [phone] * VDRL, CSF screen (08/13/2017 6:10 PM) Component Value Ref Range VDRL, CSF screen Non-reactive Non-reactive Specimen Performing Laboratory Cerebrospinal fluid [facility] DEPARTMENT OF PATHOLOGY AND GENOMIC MEDICINE [address] [place] [phone] * Protein, CSF (08/13/2017 6:10 PM) Component Value Ref Range Protein, CSF 45 10 - 50 mg/dL Specimen Performing Laboratory Cerebrospinal fluid [facility]IC[facility] [address] [place] [address] * Lactic acid level, CSF (08/13/2017 6:10 PM) Component Value Ref Range Lactic acid, CSF 1.4 0.6 - 2.2 mmol/L Specimen Performing Laboratory Cerebrospinal fluid [facility]IC[facility] [address] [place] [address] * Gram stain only (08/13/2017 6:00 PM) Component Value Ref Range Gram stain result No WBC's or organisms seen Comment: Specimen Information Specimen Source: CSF (Spinal Fluid) Specimen Site: Tube 2 Specimen Performing Laboratory Cerebrospinal fluid - [facility]OMIC MEDICINE Tube [address] [place] [address] Narrative Tube# 2 * CSF cell count with differential (08/13/2017 6:00 PM) Component Value Ref Range Color, CSF Colorless Appearance, CSF Clear CSF supernatant Colorless RBC, CSF 1 0 - 1 /CMM WBC, CSF 0 0 - 4 /CMM Specimen Performing Laboratory Cerebrospinal fluid [facility]OMIC [facility]IC[facility] [address] [place] [address] * FL Lumbar Puncture by Radiology (08/13/2017 3:44 PM) Specimen Performing Laboratory [facility] [address] [place] [address] Narrative EXAMINATION:FL LUMBAR PUNCTURE CLINICAL HISTORY:Meningitis, Lumbar puincture needed COMPARISON:None. TECHNIQUE: The examination was discussed with the patient. Risks benefits and alternatives were discussed. Written informed consent was obtained. Formal timeout procedure performed prior to beginning the study. All elements of maximal sterile barrier technique were utilized. Utilizing fluoroscopic guidance and local anesthesia, a 20-gauge spinal needle was placed into the thecal sac at L3-4 utilizing a sublaminar approach. Single puncture utilized. Clear colorless CSF obtained. 16 cc of CSF obtained. Removed after replacing the stylet. The patient left the department in good condition Fluoroscopy time 30 seconds. 1 exposure. IMPRESSION: Uncomplicated fluoroscopic guided lumbar puncture 16 cc clear colorless CSF [id number] Procedure Note Interface, Radiology Results Incoming - 08/13/2017 3:55 PM CDT EXAMINATION: FL LUMBAR PUNCTURE CLINICAL HISTORY: Meningitis, Lumbar puincture needed COMPARISON: None. TECHNIQUE: The examination was discussed with the patient. Risks benefits and alternatives were discussed. Written informed consent was obtained. Formal timeout procedure performed prior to beginning the study. All elements of maximal sterile barrier technique were utilized. Utilizing fluoroscopic guidance and local anesthesia, a 20-gauge spinal needle was placed into the thecal sac at L3-4 utilizing a sublaminar approach. Single puncture utilized. Clear colorless CSF obtained. 16 cc of CSF obtained. Removed after replacing the stylet. The patient left the department in good condition Fluoroscopy time 30 seconds. 1 exposure. IMPRESSION: Uncomplicated fluoroscopic guided lumbar puncture 16 cc clear colorless CSF [id number] * Echocardiogram complete w contrast and 3D if needed (08/12/2017 11:44 AM) Component Value Ref Range BSA 2.31 m2 Velocity Ratio (V1/V2) 0.63 m/s IVS,d 0.85 0.6 - 1.2 cm EF 73.44 % LVPWD,d 0.84 cm AoV Mean PG 5.43 mmHg AV LVOT peak gradient 4.88 mmHg MV mean gradient 4.38 mmHg MV valve area p 1/2 4.23 cm2 method PV Pk Grad 4.73 mmHg E/A ratio 0.72 E wave decelartion time 179.16 msec LVOT Diam,S 1.80 cm LVOT area 2.54 cm2 LVOT Vmax 1.10 m/s LVOT VTI 0.19 m AoV Peak PG 12.17 mmHg MV Peak E Roger 0.87 m/s MV stenosis pressure 1/2 51.96 ms time MV Peak A Roger 1.21 m/s AoV Area, Vmax 1.61 cm2 AoV Area, VTI 1.64 cm2 AoV Vmax 1.74 m/s IVS/LVPW,2D 1.02 Left Atrium Dimension 4.13 cm Anterior LV,d 4.25 cm LV,s 2.46 cm PV VMAX 1.09 m/s TR Vpeak 2.53 mm/s MV E A ratio 0.72 mmHg TR pk grad 25.67 mmHg MR peak grad 7.83 mmHg Ao Root Diameter 2.62 cm LV SYS VOL 21.45 ml LV NIELSEN VOL 80.76 ml LV SV Teich 2D 59.30 ml LV Vol s Teich PSAX 21.45 ml LVOT CO 4.62 l/min LVOT HR for LVOT CO 97.31 bpm MV Vmax 1.40 m MV VTI Tips 0.24 m AoV Vmn 1.10 IVS s 2D 1.23 LV FS Cube 2D 42.09 LV FS Teich 2D 42.09 Ao Root Diameter 2.62 cm AoV VTI 0.29 m LV EF,2D 80.58 % MV AE ratio 1.38 LVOT Vmn 0.75 Aov area Vmn 1.74 cm2 LVOT mean grad 2.52 mmHg MAX Pred HR 167.38 85 of MPHR 142.27 Calc MPHR 167.38 bpm IVS pct thck PLAX 43.75 % LV SV Cube 2D 61.81 ml LV vol d cube 2D 76.70 ml LV vol s cube 2D 14.90 ml LVPW pct thck PLAX 48.77 % LVPW s PLAX 1.25 cm MV Decel slope 4.87 m/s2 Pred Exer Dur R1 8.70 Pred METS R1 7.86 Specimen Performing Laboratory [facility] [address] [place] [address] Narrative There is borderline left ventricular hypertrophy. Left Ventricular ejection fraction is 50 - 55%. Right ventricular size is normal. Left atrium size is upper limits of normal. The mitral valve appears thickened. Spectral Doppler shows impaired relaxation pattern of left ventricular diastolic filling. * D-dimer (08/11/2017 7:16 PM) Only the most recent of 2 results within the time period is included. Component Value Ref Range D-dimer 2.85 (H) 0.00 - 0.40 ug/mL FEU Comment: Units are ug/ml Fibrinogen Equivalent Unit. When combined with low clinical probability, D-dimer results of less than 0.5 ug/ml FEU have a good negative predictive value in excluding PE or DVT. For D-dimer results greater than 0.5 ug/ml FEU further testing is indicated if PE or DVT is suspected clinically. Elevated D-dimer results have been reported in DVT, PE, and DIC cases and may indicate the presence of a clot. D-dimer results may be elevated due to old age, , inflammatory diseases, trauma, post-operative states, sepsis, and malignancies. Specimen Performing Laboratory Blood [facility] [place] [address] [place] [id number] * Lipase level (04/12/2017 3:19 PM) Component Value Ref Range Lipase 44 (L) 65 - 230 U/L Specimen Performing Laboratory Plasma specimen [facility] [place] [address] [place] [id number] * MRI Brain Wo Contrast (03/27/2017 11:53 AM) Specimen Performing Laboratory [address] [address] Narrative EXAMINATION:MRI BRAIN WO CONTRAST CLINICAL HISTORY:vertigo, L sided numbness COMPARISON:February 07, 2017 Findings: No intracranial hemorrhage, acute ischemia, extra-axial fluid collections or parenchymal mass lesions. No hydrocephalus. No suspicious focal bone marrow lesions. Minimal chronic ischemic small vessel in matter changes. Major flow voids are maintained. IMPRESSION: No acute intracranial abnormalities or mass lesions. [id number] Procedure Note Interface, Radiology Conversion - 03/27/2017 12:07 PM CDT EXAMINATION: MRI BRAIN WO CONTRAST CLINICAL HISTORY: vertigo, L sided numbness COMPARISON: February 07, 2017 Findings: No intracranial hemorrhage, acute ischemia, extra-axial fluid collections or parenchymal mass lesions. No hydrocephalus. No suspicious focal bone marrow lesions. Minimal chronic ischemic small vessel in matter changes. Major flow voids are maintained. IMPRESSION: No acute intracranial abnormalities or mass lesions. [facility]-[id number] * CK-MB (03/27/2017 10:40 AM) Component Value Ref Range CK-MB <0.5 0.5 - 3.2 ng/mL Specimen Performing Laboratory [facility] [place] [facility] [address] [place] [address] after 03/22/2017 Insurance Payer Benefit Subscriber ID Type Phone Address Plan / Group KIM EXCHANGE KIM xxxxxxxxxx Exchange [employer] E EXCHANGE
[2018-03-23] MEDS ORDERED: PANTOPRAZOLE 40 MG 10ML VIAL IV STA (20:39)
[2018-03-23] MEDS ORDERED: HYDROMORPHONE 1MG/1ML INJ IV STA (20:39)
[2018-03-23] MEDS ORDERED: SODIUM CHLORIDE 0.9% 500ML 500 ML IV ONE (21:00)
--- NOTE | 2018-03-23 21:27 | Diagnostic Imaging Report ---
EXAM: CHEST SINGLE (PORTABLE), AP 1 view INDICATION: Numbness in legs, fall COMPARISON: None FINDINGS: LINES/TUBES: None LUNGS: No consolidations or edema. PLEURA: No effusions or pneumothorax. HEART AND MEDIASTINUM: Normal size and contour. Intact median sternotomy wires. BONES AND SOFT TISSUES: No acute findings. IMPRESSION: No acute thoracic abnormality. Signed by: Dr. Kristina Granados M.D. on 03/23/2018 9:24 PM
[2018-03-23 22:57] LABS: ALANINE AMINOTRANSFERASE 12 IU/L (0-55); ALBUMIN 3.2 g/dL (3.5-5.0); ALBUMIN/GLOBULIN RATIO 0.9 (0.8-2.0); ALKALINE PHOSPHATASE 64 IU/L (40-150); ANION GAP 12.4 mmol/L (8-16); BLOOD UREA NITROGEN 10 mg/dL (7-26); BUN/CREATININE RATIO 13 (6-25); CALCIUM 9.1 mg/dL (8.4-10.2); CARBON DIOXIDE 25 mmol/L (22-29); CHLORIDE 108 mmol/L (98-107); CREATININE, SERUM 0.76 mg/dL (0.57-1.11); EST GLOMERULAR FILTRATION RATE > 60 ML/MIN (60-); GLUCOSE 117 mg/dL (74-118); MAGNESIUM 1.7 MG/DL (1.3-2.1); POTASSIUM 3.4 mmol/L (3.5-5.1); SODIUM 142 mmol/L (136-145)
[2018-03-23 22:58] LABS: BACTERIA,URINE RARE /HPF; BILIRUBIN,URINE NEGATIVE (NEGATIVE); CALCIUM OXALATE CRYSTALS,UR RARE (FEW); CLARITY,URINE SL CLOUDY (CLEAR); COLOR,URINE YELLOW (YELLOW); EPITHELIAL CELLS,URINE MANY /LPF; KETONES,URINE NEGATIVE (NEGATIVE); LEUKOCYTE ESTERASE ,URINE NEGATIVE (NEGATIVE); NITRITE,URINE NEGATIVE (NEGATIVE); PROTEIN,URINE DIPSTICK NEGATIVE (NEGATIVE); RBC,URINE 0-5 /HPF (0-5); URINE UROBILINOGEN 0.2 mg/dL (0.2 - 1); WBC,URINE (MAN) 0-5 /HPF (0-5)
[2018-03-23 22:59] LABS: BASOPHILS % 0.3 % (0.0-1.0); EOSINOPHILS % 1.2 % (0.0-6.0); HEMOGLOBIN 14.1 g/dL (12.0-16.0); LYMPHOCYTES % 21.3 % (18.0-39.1); MEAN CORPUSCULAR HEMOGLOBIN 27.4 pg (28-32); MEAN CORPUSCULAR VOLUME 85.6 fL (81-99); MONOCYTES % 5.7 % (4.4-11.3); NEUTROPHILS % 71.1 % (38.7-80.0); PLATELET COUNT 283 x10e3/uL (140-360); RED BLOOD COUNT 5.14 x10e6/uL (3.6-5.1); RED CELL DISTRIBUTION WIDTH 14.4 % (11.7-14.4)
[2018-03-23 23:00] LABS: EOSINOPHILS # (AUTO) 0.2 (0.0-0.4); ERYTHROCYTE SEDIMENTATION RATE 10 mm/hr (0-20); LYMPHOCYTES # (AUTO) 3.2 (1.0-3.2); MONOCYTES # (AUTO) 0.9 (0.2-0.8); NEUTROPHILS # (AUTO) 10.7 (2.1-6.9)
[2018-03-23 23:04] LABS: B-TYPE NATRIURETIC PEPTIDE2 35.7 pg/mL (0-100)
[2018-03-23 23:16] LABS: CREATINE KINASE 20 IU/L (29-168)
--- NOTE | 2018-03-23 23:16 | Diagnostic Imaging Report ---
Exam: Thoracic and cervical spine MRIs without IV contrast History: Fall, back pain with radiculopathy and bowel incontinence. Comparison studies: None Technique: Thoracic spine: Sagittal T1, T2, STIR, axial T1 and axial coronal T2. Lumbar spine: Sagittal T1, T2, STIR, axial and coronal T2, axial T2 FS and axial oblique spin density oblique Findings: Limitations: The sagittal T1 and T2 sequences are somewhat limited by artifacts related to patient motion.. Number of lumbar vertebral bodies:5. Alignment: Normal thoracic kyphosis. Normal lumbar lordosis. No scoliosis. Lower thoracic cord: Normal in signal and morphology. The tip of the conus is at L1. Cauda equina nerve roots: No mass or evidence of arachnoiditis. Soft tissues: No T2 hyperintense inflammatory changes. Paraspinal muscles: Well preserved. Vertebrae: Normal in height and signal intensity. No compression fractures, infection or neoplasm. Degenerative changes: Thoracic spine: Loss of T2/STIR disc signal from T5 through T10. Patent canal and foramina. Small anterior marginal osteophytes on the right at T9-T10 and T11-T12. Lumbar spine: L2-L3: Mild to moderate loss of disc height with loss of T2 disc signal with mild fatty replaced marrow endplate changes. Asymmetric right disc osteophyte complex may abut the right L2 nerve root and results in mild right foraminal stenosis. Significant canal or left foraminal stenosis. L3-L4: Symmetric bulging disc with mild facet arthrosis without significant canal or foraminal stenosis. L4-5: Loss of T2/STIR disc signal. Symmetric disc bulge and mild bilateral facet arthrosis with mild bilateral foraminal stenosis. No significant canal stenosis. L5-S1: Mild loss of disc height loss of T2 disc signal. Disc bulge with small central disc protrusion with annular fissure and mild facet arthrosis with mild bilateral foraminal stenosis. Incidental findings: Susceptibility artifact related to median sternotomy wires are previous cardiothoracic surgery. IMPRESSION: Thoracic spine: 1. No compression fracture or other acute abnormalities. 2. No cord signal abnormalities. 3. Patent canal and foramina. Lumbar spine: 1. No compression fracture or other acute abnormalities. 2. Mild to moderately degenerated L2-L3 disc. 3. No significant canal stenosis. 4. Mild multilevel foraminal stenosis facet arthrosis as described. Signed by: Dr. Prakash Barbosa M.D. on 03/23/2018 11:13 PM
[2018-03-23 23:35] LABS: INR 0.87; PARTIAL THROMBOPLASTIN TIME 23.5 seconds (23.8-35.5); PROTHROMBIN TIME 11.1 seconds (11.9-14.5)
[2018-03-24] MEDS ORDERED: HYDROCODONE/APAP 10MG-325MG TAB PO ONE (00:15)
[2018-03-24 00:48] VITALS: BP 138/75
== END 2018-03-24 01:13 | disposition home or self-care (01) ==
LOC: ER 20:16
CPT/HCPCS: 36415; 71045; 72146; 72148; 80053; 81001; 82550; 82553; 83605; 83735; 83880; 84484; 85025; 85610; 85651; 85730; 87040; 87086; 93005; 99284; J1170; J7040